=== PATIENT | female | born 1935 | race Caucasian/White ===

== ENCOUNTER 2019-05-09 20:02 | Emergency (ER) | payer MEDICARE ==
[~2019-05-09] VITALS: Ht 160 cm; Wt 88.0 kg
[2019-05-09 21:10] LABS: BASOPHILS % 0.2 % (0.0-1.0); EOSINOPHILS % 0.7 % (0.0-6.0); HEMATOCRIT 36.1 % (34.2-44.1); HEMOGLOBIN 12.4 g/dL (12.0-16.0); LYMPHOCYTES # (AUTO) 1.6 (1.0-3.2); LYMPHOCYTES % 36.5 % (18.0-39.1); MEAN CORPUSCULAR HEMOGLOBIN 29.2 pg (28-32); MEAN CORPUSCULAR HGB CONC 34.3 g/dL (31-35); MEAN CORPUSCULAR VOLUME 85.1 fL (81-99); MONOCYTES # (AUTO) 0.4 (0.2-0.8); MONOCYTES % 9.4 % (4.4-11.3); NEUTROPHILS # (AUTO) 2.4 (2.1-6.9); PLATELET COUNT 131 x10e3/uL (140-360); RED BLOOD COUNT 4.24 x10e6/uL (3.6-5.1); RED CELL DISTRIBUTION WIDTH 13.2 % (11.7-14.4)
[2019-05-09 21:20] LABS: INR 0.9; PARTIAL THROMBOPLASTIN TIME 25.9 seconds (23.8-35.5); PROTHROMBIN TIME 12.7 seconds (11.9-14.5)
[2019-05-09 21:27] LABS: ALBUMIN 3.8 g/dL (3.5-5.0); ALBUMIN/GLOBULIN RATIO 1.3 (0.8-2.0); ANION GAP 13.7 mmol/L (8-16); CALCIUM 9.1 mg/dL (8.4-10.2); CREATININE, SERUM 0.91 mg/dL (0.57-1.11); POTASSIUM 3.7 mmol/L (3.5-5.1)
[2019-05-09 21:34] LABS: CREATINE KINASE MB 4.9 ng/mL (0-5.0)
--- NOTE | 2019-05-09 22:30 | Diagnostic Imaging Report ---
EXAMINATION: Head CT HISTORY: Syncope, lightheadedness, nausea and vomiting COMPARISON: None. TECHNIQUE: Multidetector axial images were obtained without contrast from the foramen magnum to the vertex . The images were reconstructed using brain and bone algorithms. Thin section brain images were reformatted into coronal and sagittal planes. Image quality: Motion/streaking artifact limits the evaluation of the skull base and posterior cranial fossa. Dose modulation, iterative reconstruction, and/or weight based adjustment of the mA/kV was utilized to reduce the radiation dose to as low as reasonably achievable. FINDINGS: Parenchyma: 1. No abnormal densities. 2. No mass or hemorrhage. No CT evidence of acute territorial vascular insult. Extra-axial spaces:No abnormal density. No extra-axial fluid collections Brain volume: Normal for age. Ventricles: No hydrocephalus or displacement. Arteries: No density suggestive of thrombus. Dural sinuses: No abnormal density. Foramen magnum: No mass, Chiari malformation, or basilar invagination. Sella: No obvious mass. Paranasal/mastoid sinuses: Imaged portions unremarkable. Skull/Scalp: No lytic or blastic lesions. No fractures. IMPRESSION: No intracranial abnormalities. Signed by: Dr. Enma Carvajal M.D. on 05/09/2019 10:27 PM
--- NOTE | 2019-05-09 23:16 | Diagnostic Imaging Report ---
EXAMINATION: CHEST SINGLE (PORTABLE) INDICATION: Syncope COMPARISON: None FINDINGS: TUBES and LINES: None. LUNGS: Normal lung volumes. Lungs are clear. Prominent central pulmonary vasculature. PLEURA: No pleural effusion or pneumothorax. HEART AND MEDIASTINUM: The cardiomediastinal silhouette is unremarkable. There are atherosclerotic calcifications within the aorta. BONES AND SOFT TISSUES: No acute osseous lesion. Soft tissues are unremarkable. Degenerative changes in the spine and shoulders. UPPER ABDOMEN: No free air under the diaphragm. IMPRESSION: Pulmonary vascular congestion. Signed by: Wojciech Nevarez DO on 05/09/2019 11:13 PM
[2019-05-09 23:40] LABS: BACTERIA,URINE FEW /HPF; BILIRUBIN,URINE NEGATIVE (NEGATIVE); CLARITY,URINE CLEAR (CLEAR); COLOR,URINE YELLOW (YELLOW); EPITHELIAL CELLS,URINE FEW /LPF; KETONES,URINE NEGATIVE (NEGATIVE); LEUKOCYTE ESTERASE ,URINE TRACE (NEGATIVE); NITRITE,URINE NEGATIVE (NEGATIVE); PROTEIN,URINE DIPSTICK NEGATIVE (NEGATIVE); URINE UROBILINOGEN 0.2 mg/dL (0.2 - 1)
[2019-05-10] MEDS ORDERED: SODIUM CHLORIDE FLUSH 10 ML SYR INJ PRN (00:30)
[2019-05-10] MEDS ORDERED: ONDANSETRON HCL INJ 2MG/ML 2ML 2 MG/ML VIAL IV PRN (00:30)
--- OUTSIDE RECORDS SUMMARY | 2019-05-10 00:35 | XMS REPORT ---
Author Author [facility] Address Unknown Phone Unavailable Care Team Providers Care Hotel Attendant Name Role Phone Soraya CORREA Unavailable Unavailable Problems This patient has no known problems. Allergies, Adverse Reactions, Alerts This patient has no known allergies or adverse reactions. Medications This patient has no known medications. Results Test Description Test Time Test Comments Text Results Atomic Results Result Comments CHEST SINGLE (PORTABLE) 2019-05-09 23:12:00 [place] [id number] Patient Name: FAVIAN KOLB MR #: [id number] : 1935 Age/Sex: 83/F Req #: [id number] Adm Physician: Ordered by: MAKAYLA CORREA MD Report #: [id number] Location: ER Room/Bed: Procedure: [id number] DX/CHEST SINGLE (PORTABLE) Exam Date: 05/09/19 Exam Time: 2203 REPORT STATUS: Signed EXAMINATION: CHEST SINGLE (PORTABLE) INDICATION: Syncope COMPARISON: None FINDINGS: TUBES and LINES: None. LUNGS: Normal lung volumes. Lungs are clear. Prominent central pulmonary vasculature. PLEURA: No pleural effusion or pneumothorax. HEART AND MEDIASTINUM: The cardiomediastinal silhouette is unremarkable. There are atherosclerotic calcifications within the aorta. BONES AND SOFT TISSUES: No acute osseous lesion. Soft tissues are unremarkable. Degenerative changes in the spine and shoulders. UPPER ABDOMEN: No free air under the diaphragm. IMPRESSION: Pulmonary vascular congestion. Signed by: Wojciech Nevarez DO on 05/09/2019 11:13 PM Dictated By: WOJCIECH NEVAREZ DO 12 Transcribed By: LAUREN on 05/09/192312 COPY TO: MAKAYLA CORREA MD CT BRAIN WO 2019-05-09 22:18:00 [place] [id number] Patient Name: FAVIAN KOLB MR #: [id number] : 1935 Age/Sex: 83/F Req #: [id number] Adm Physician: Ordered by: MAKAYLA CORREA MD Report #: [id number] Location: ER Room/Bed: Procedure: [id number] CT/CT BRAIN WO Exam Date: 05/09/19 Exam Time: 2203 REPORT STATUS: Signed EXAMINATION: Head CT HISTORY: Syncope, lightheadedness, nausea and vomiting COMPARISON: None. TECHNIQUE: Multidetector axial images were obtained without contrast from the foramen magnum to the vertex . The images were reconstructed using brain and bone algorithms. Thin section brain images were reformatted into coronal and sagittal planes. Image quality: Motion/streaking artifact limits the evaluation of the skull base and posterior cranial fossa. Dose modulation, iterative reconstruction, and/or weight based adjustment of the mA/kV was utilized to reduce the radiation dose to as low as reasonably achievable. FINDINGS: Parenchyma: 1. No abnormal densities. 2. No mass or hemorrhage. No CT evidence of acute territorial vascular insult. Extra-axial spaces:No abnormal density. No extra-axial fluid collections Brain volume: Normal for age. Ventricles: No hydrocephalus or displacement. Arteries: No density suggestive of thrombus. Dural sinuses: No abnormal density. Foramen magnum: No mass, Chiari malformation, or basilar invagination. Sella: No obvious mass. Paranasal/mastoid sinuses: Imaged portions unremarkable. Skull/Scalp: No lytic or blastic lesions. No fractures. IMPRESSION: No intracranial abnormalities. Signed by: Dr. Geoff Carvajal M.D. on 05/09/2019 10:27 PM Dictated By: GEOFF CARVAJAL MD Elec tronically Signed By: GEOFF CARVAJAL MD on 05/09/192226 Transcribed By: LAUREN on 05/09/192226 COPY TO: MAKAYLA CORREA MD
[2019-05-10] MEDS ORDERED: HYDROCODONE/CHLORPHENIRAMINE 5 ML LIQCR PO PRN (04:00)
[2019-05-10] MEDS ORDERED: HYDROCODONE/CHLORPHENIRAMINE 5 ML LIQCR ONE (04:09)
[2019-05-10 05:05] LABS: CREATINE KINASE 159 IU/L (29-168)
[2019-05-10 06:15] LABS: BASOPHILS % 0.3 % (0.0-1.0); EOSINOPHILS % 0.6 % (0.0-6.0); HEMATOCRIT 33.4 % (34.2-44.1); HEMOGLOBIN 11.3 g/dL (12.0-16.0); LYMPHOCYTES # (AUTO) 2.1 (1.0-3.2); LYMPHOCYTES % 57.6 % (18.0-39.1); MEAN CORPUSCULAR HEMOGLOBIN 28.9 pg (28-32); MEAN CORPUSCULAR HGB CONC 33.8 g/dL (31-35); MEAN CORPUSCULAR VOLUME 85.4 fL (81-99); MONOCYTES # (AUTO) 0.4 (0.2-0.8); MONOCYTES % 10.5 % (4.4-11.3); NEUTROPHILS # (AUTO) 1.1 (2.1-6.9); PLATELET COUNT 123 x10e3/uL (140-360); RED BLOOD COUNT 3.91 x10e6/uL (3.6-5.1); RED CELL DISTRIBUTION WIDTH 13.2 % (11.7-14.4)
[2019-05-10 06:26] LABS: ALANINE AMINOTRANSFERASE 17 IU/L (0-55); ALBUMIN 3.5 g/dL (3.5-5.0); ALBUMIN/GLOBULIN RATIO 1.3 (0.8-2.0); ALKALINE PHOSPHATASE 48 IU/L (40-150); ANION GAP 15.8 mmol/L (8-16); BLOOD UREA NITROGEN 17 mg/dL (7-26); BUN/CREATININE RATIO 23 (6-25); CALCIUM 8.8 mg/dL (8.4-10.2); CARBON DIOXIDE 25 mmol/L (22-29); CHLORIDE 104 mmol/L (98-107); CREATININE, SERUM 0.75 mg/dL (0.57-1.11); EST GLOMERULAR FILTRATION RATE > 60 ML/MIN (60-); GLUCOSE 89 mg/dL (74-118); POTASSIUM 3.8 mmol/L (3.5-5.1); SODIUM 141 mmol/L (136-145)
--- NOTE | 2019-05-10 18:59 | History and Physical ---
PRIMARY CARE PHYSICIAN: Dr. Sharan Hoffman. CHIEF COMPLAINT: Near syncope. HISTORY OF PRESENT ILLNESS: This is an 83-year-old woman who has been battling sinus drainage, cough, and diarrhea. Diarrhea had finally stopped yesterday afternoon. Last night, she went out to dinner with her and while sitting down eating, the patient felt lightheaded and had to put her head down. Subsequently, the patient had one episode of vomiting and she felt back to baseline. The patient came to the ER for further evaluation. Currently, the patient is still in her usual state of health. No chest pain. No shortness of breath. Still has some nagging cough. No fever. The patient does take bisoprolol for her blood pressure. PAST MEDICAL HISTORY: 1. Hypertension. 2. Hyperlipidemia. 3. GERD. MEDICATIONS: Please see medication reconciliation form. PAST SURGICAL HISTORY: Knee and hip. ALLERGIES: TO AMLODIPINE. FAMILY HISTORY: Heart disease. SOCIAL HISTORY: Does not smoke. REVIEW OF SYSTEMS: A 10-point review of systems obtained. Nothing else is significant other than what is stated in the HPI. PHYSICAL EXAMINATION: VITAL SIGNS: Temperature 98.2; pulse as low as 48, currently in the 50s; blood pressure 117/63; respiratory rate 18. GENERAL: No acute distress. SKIN: No rash. HEENT: Anicteric. Oropharynx is clear. HEART: [place]. Normal S1, S2. LUNGS: Clear. ABDOMEN: Soft, nondistended, and nontender. Normoactive bowel sounds. : Deferred. NEUROLOGICAL: Alert and oriented x3. Cranial nerves 2-12 intact. PSYCHIATRIC: No hallucinations. LABORATORY DATA: Creatinine 0.76. Hemoglobin 11.3. PT and PTT are normal. Chest x-ray unremarkable. Head CT was negative. Echo was unremarkable. Carotid ultrasound, preliminary, possible left bifurcation stenosis. ASSESSMENT AND PLAN: Near syncope, likely due to a combination of iatrogenic bradycardia and diarrhea. At this time, diarrhea has resolved. The patient is back to her usual self. She is stable for going home. I have asked her to hold her disapproval and follow up with her primary care doctor in a week. Potentially, she may need different blood pressure medicines to offset her bisoprolol. MD MELISA Serrano/SJ /[id number] cc: [facility]
--- NOTE | 2019-05-11 01:46 | Discharge Summary ---
FINAL DIAGNOSIS: Near syncope due to iatrogenic bradycardia and dehydration. HOSPITAL COURSE: The patient was monitored overnight. She was told to hold her bisoprolol. She is back to her baseline. The patient will follow up with her primary care doctor. Please see H and P for details. CONDITION ON DISCHARGE: Stable. DISCHARGE MEDICATIONS: Please see medication reconciliation form. YiMD MELISA Nolasco/SJ /[id number]
== END 2019-05-10 12:38 | disposition home or self-care (01) ==
LOC: ER 20:02 → UNDOADMOB 05-10 00:29 → ERHOLD 05-10 00:29
DX: R55 Syncope and collapse (principal); I10 Essential (primary) hypertension; E78.5 Hyperlipidemia, unspecified; K21.9 Gastro-esophageal reflux disease without esophagitis; Z96.653 Presence of artificial knee joint, bilateral; Z96.641 Presence of right artificial hip joint
CPT/HCPCS: 36415; 70450; 71045; 80053; 81001; 82550; 82553; 83880; 84484; 85025; 85610; 85730; 93005; 93306; 93880; 99284

== ENCOUNTER 2021-01-27 10:05 | Emergency (ER) | payer MEDICARE ==
[~2021-01-27] VITALS: Ht 162.6 cm; Wt 86.2 kg
[2021-01-27 12:23] VITALS: BP 186/69
== END 2021-01-27 12:32 | disposition home or self-care (01) ==
LOC: FSED 10:30
DX: R07.89 Other chest pain (principal); I10 Essential (primary) hypertension; E78.5 Hyperlipidemia, unspecified; R91.8 Other nonspecific abnormal finding of lung field; R94.31 Abnormal electrocardiogram [ECG] [EKG]; K21.9 Gastro-esophageal reflux disease without esophagitis; Z96.653 Presence of artificial knee joint, bilateral; Z96.641 Presence of right artificial hip joint
CPT/HCPCS: 71046; 80053; 82553; 84484; 85025; 99283

== ENCOUNTER 2021-08-02 13:23 | Emergency (ER) | payer MEDICARE, OTHER ==
[~2021-08-02] VITALS: Ht 160 cm; Wt 79.8 kg
[2021-08-02] MEDS ORDERED: TETANUS/DIPHTHERIA TOX ADULT 0.5 ML SYR ONE (14:05)
[2021-08-02] MEDS ORDERED: TETANUS/DIPHTHERIA TOX ADULT 0.5 ML SYR IM ONE (14:15)
[2021-08-02] MEDS ORDERED: CEFTRIAXONE 1 GM VIAL IM ONE (14:30)
[2021-08-02] MEDS ORDERED: ACETAMINOPHEN 325 MG TAB PO ONE (14:30)
[2021-08-02] MEDS ORDERED: CEFTRIAXONE 1 GM VIAL ONE (14:34)
[2021-08-02] MEDS ORDERED: ACETAMINOPHEN 325 MG TAB ONE (14:34)
[2021-08-02] MEDS ORDERED: AMOX TR-K CLV1 EAC2 PO (15:23)
== END 2021-08-02 15:48 | disposition home or self-care (01) ==
LOC: FSED 13:35
DX: S51.851A Open bite of right forearm, initial encounter (principal); W54.0XXA Bitten by dog, initial encounter; Y92.007 Garden or yard of unspecified non-institutional (private) residence as the place of occurrence of the external cause; I10 Essential (primary) hypertension; E78.5 Hyperlipidemia, unspecified; K21.9 Gastro-esophageal reflux disease without esophagitis; Z96.641 Presence of right artificial hip joint; Z96.653 Presence of artificial knee joint, bilateral
CPT/HCPCS: 12001; 73090; 90471; 90714; 99284; J0696

== ENCOUNTER 2023-12-19 09:09 | Emergency (ER) | payer MEDICARE ==
[~2023-12-19] VITALS: Ht 160 cm; Wt 77.6 kg
[~2023-12-19 09:09] MED LIST: AMIODARONE HCL200 MG PO; AMOX TR-K CLV1 EAC2 PO; ATORVASTATIN CA80 MG PO; BACLOFEN10 MG PO; CEFDINIR300 MG PO; ESIDRIX25 MG PO; FERROUS SULFAT325 MG PO; FLUTICASONE PRO16 GM NS; GABAPENTIN100 MG PO; HYDRALAZINE HC100 MG PO; LEVOTHYROXINE25 MCG PO; LISINOPRIL40 MG PO; OMEPRAZOLE20 MG PO
[2023-12-19 09:14] VITALS: PULSE 76; RESP 15; TEMP 98.8; O2SAT 95
== END 2023-12-19 12:02 | disposition home or self-care (01) ==
LOC: ER 09:18
DX: S00.03XA Contusion of scalp, initial encounter (principal); W01.198A Fall on same level from slipping, tripping and stumbling with subsequent striking against other object, initial encounter; Y93.01 Activity, walking, marching and hiking; Y92.89 Other specified places as the place of occurrence of the external cause; I10 Essential (primary) hypertension; E78.5 Hyperlipidemia, unspecified; K21.9 Gastro-esophageal reflux disease without esophagitis; Z96.641 Presence of right artificial hip joint; Z96.653 Presence of artificial knee joint, bilateral
CPT/HCPCS: 70450; 72125; 99284

== ENCOUNTER 2024-02-26 11:00 | Inpatient (IN) | payer MEDICARE ==
[~2024-02-26] VITALS: Ht 160 cm; Wt 70.8 kg
[2024-02-26] MEDS: CLONIDINE HCL 0.1 MG TAB PO ONE (12:17)
[2024-02-26] MEDS: ASPIRIN 81 MG CHEW TAB PO ONE (13:35)
[2024-02-26 13:45] VITALS: PULSE 62; RESP 18; TEMP 98.3
[2024-02-26 15:04] VITALS: BP 157/72; O2SAT 96
[2024-02-26] MEDS ORDERED: IPRATROPIUM BRO30 ML INH (15:13)
[2024-02-26] MEDS ORDERED: FAMOTIDINE20 MG PO (15:14)
[2024-02-26 15:19] VITALS: BP 157/72; O2SAT 96
[2024-02-26] MEDS ORDERED: ASPIRIN81 MG PO (15:30)
[2024-02-26] MEDS: FUROSEMIDE INJ 10 MG/ML 4 ML VIAL IV SCH (16:25)
[2024-02-26] MEDS: CARVEDILOL 3.125 MG TAB PO SCH (16:25)
[2024-02-26] MEDS: LOSARTAN POTASSIUM 25 MG TAB PO SCH (16:26)
[2024-02-26 20:00] VITALS: BP 119/59; PULSE 73; RESP 20; TEMP 97.7; O2SAT 95
[2024-02-26 21:00] VITALS: BP 119/59; PULSE 73; RESP 20; TEMP 97.7; O2SAT 95
[2024-02-26] MEDS ORDERED: MELATONIN 3 MG TAB PO PRN (21:45)
[2024-02-26] MEDS ORDERED: MAGNESIUM/ALUMINUM/SIMETHICONE 30 ML UDC PO PRN (21:45)
[2024-02-26] MEDS ORDERED: ONDANSETRON HCL INJ 2MG/ML 2ML 2 MG/ML VIAL IV PRN (21:45)
[2024-02-26] MEDS: IPRATROPIUM BROMIDE 0.03% NASAL SPRAY 30ML SCH (21:45)
[2024-02-26] MEDS: GUAIFENESIN/DEXTROMETHORPHAN LIQD 5 ML UDC PO PRN (22:14)
[2024-02-27] VITALS (14 sets, daily range): BP systolic 140–188; BP diastolic 55–76; PULSE 63–67; RESP 16–20; TEMP 97.7–98.5; O2SAT 93–100
[2024-02-27] MEDS: LEVOTHYROXINE SODIUM 25 MCG TABLET PO SCH (06:00)
[2024-02-27 06:26] LABS: BASOPHILS % 0.6 % (0.0-1.0); EOSINOPHILS # (AUTO) 0.2 (0.0-0.4); EOSINOPHILS % 3.6 % (0.0-6.0); HEMATOCRIT 28.5 % (34.2-44.1); HEMOGLOBIN 9.4 g/dL (12.0-16.0); LYMPHOCYTES # (AUTO) 1.1 (1.0-3.2); LYMPHOCYTES % 21.7 % (18.0-39.1); MEAN CORPUSCULAR HEMOGLOBIN 28.2 pg (28-32); MEAN CORPUSCULAR VOLUME 85.6 fL (81-99); MONOCYTES # (AUTO) 0.4 (0.2-0.8); MONOCYTES % 8.1 % (4.4-11.3); NEUTROPHILS # (AUTO) 3.4 (2.1-6.9); NEUTROPHILS % 65.6 % (38.7-80.0); PLATELET COUNT 151 x10e3/uL (140-360); RED BLOOD COUNT 3.33 x10e6/uL (3.6-5.1); RED CELL DISTRIBUTION WIDTH 15.2 % (11.7-14.4); WHITE BLOOD COUNT 5.21 x10e3/uL (4.8-10.8)
[2024-02-27 06:51] LABS: MAGNESIUM 1.7 MG/DL (1.3-2.1)
[2024-02-27 07:31] LABS: CALCIUM 8.6 mg/dL (8.4-10.2); CREATININE, SERUM 0.75 mg/dL (0.57-1.11)
[2024-02-27 07:37] LABS: TROPONIN I 0.017 ng/mL (0-0.300)
[2024-02-27 07:45] LABS: THYROID STIMULATING HORMONE 3.214 uIU/mL (0.350-4.940)
[2024-02-27 08:04] LABS: ANION GAP 15.1 mmol/L (8-16); POTASSIUM 3.1 mmol/L (3.5-5.1)
[2024-02-27 08:11] LABS: INR 0.92; PROTHROMBIN TIME 12.9 seconds (11.9-14.5)
[2024-02-27] MEDS: MULTIVITAMINS/MINERALS TAB PO SCH (08:11)
[2024-02-27] MEDS: PANTOPRAZOLE SODIUM 20 MG TABLET.DR PO SCH (08:11)
[2024-02-27] MEDS: ASPIRIN 81 MG CHEW TAB PO SCH (08:11)
[2024-02-27] MEDS: DOCUSATE SODIUM 100 MG CAP PO SCH (08:11)
[2024-02-27] MEDS: AMIODARONE HCL 200 MG TAB PO SCH (08:12)
[2024-02-27] MEDS: HYDRALAZINE HCL 20 MG/ML VIAL IV PRN (12:38)
[2024-02-27] MEDS: ACETAMINOPHEN 325 MG TAB PO PRN (16:09)
[2024-02-27 16:44] LABS: BODY FLUID APPEARANCE SL.CLOUDY; BODY FLUID COLOR YELLOW; BODY FLUID TYPE PLEURAL
[2024-02-27 16:45] LABS: RBC,BODY FLUID 4000 cells/uL; WBC,BODY FLUID 2987 cells/uL
[2024-02-27 16:56] LABS: TROPONIN I 0.016 ng/mL (0-0.300)
[2024-02-27 18:37] LABS: EOSINOPHILS,BODY FLUID 10 %; LYMPHOCYTES,BODY FLUID 24 %; MONO/MACROPHG,BODY FLUID 17 %; NEUTROPHILS,BODY FLUID 44 %; OTHER CELLS,BODY FLUID 5 %; TOTAL CELLS COUNTED (DIFF) 100
[2024-02-27] MEDS: GABAPENTIN 100 MG CAP PO SCH (21:14)
[2024-02-27] MEDS: ATORVASTATIN 40 MG TAB PO SCH (21:14)
[2024-02-28] VITALS (12 sets, daily range): BP systolic 123–172; BP diastolic 54–70; PULSE 59–71; RESP 16–18; TEMP 97.7–99.2; O2SAT 93–99
[2024-02-28] MEDS: POTASSIUM CHLORIDE 20 MEQ TAB CR PO STA (06:42)
[2024-02-28 07:13] LABS: ANION GAP 13.8 mmol/L (8-16); CALCIUM 8.7 mg/dL (8.4-10.2); CREATININE, SERUM 0.69 mg/dL (0.57-1.11); MAGNESIUM 1.6 MG/DL (1.3-2.1)
[2024-02-28 07:16] LABS: POTASSIUM 2.8 mmol/L (3.5-5.1)
[2024-02-28 07:35] LABS: FERRITIN 586.98 ng/mL (4.63-204.00)
[2024-02-28] MEDS: POTASSIUM CHLORIDE 20 MEQ TAB CR PO ONE ×2 (07:37→11:58)
[2024-02-28] MEDS: HYDRALAZINE HCL 100 MG TABLET PO SCH (08:40)
[2024-02-28] MEDS: POLYETHYLENE GLYCOL 3350 17 GM PACK PO PRN (21:19)
[2024-02-29] VITALS (7 sets, daily range): BP systolic 118–139; BP diastolic 53–67; PULSE 65–74; RESP 16–24; TEMP 98–99; O2SAT 92–97
[2024-02-29 06:02] LABS: TOTAL PROTEIN,BODY FLUID 4.1 g/dL
[2024-02-29 06:27] LABS: ANION GAP 13.8 mmol/L (8-16); CALCIUM 8.5 mg/dL (8.4-10.2); CREATININE, SERUM 0.76 mg/dL (0.57-1.11); MAGNESIUM 1.5 MG/DL (1.3-2.1); POTASSIUM 3.8 mmol/L (3.5-5.1)
[2024-02-29] MEDS: FERROUS SULFATE 325 MG TAB PO SCH (09:13)
[2024-02-29] MEDS: POTASSIUM CHLORIDE 20 MEQ TAB CR PO SCH (09:14)
[2024-02-29] MEDS ORDERED: LASIX40 MG PO (17:13)
[2024-02-29] MEDS ORDERED: HYDRALAZINE HC100 MG PO (17:13)
[2024-02-29] MEDS ORDERED: Ferrous Sulfate PO (17:13)
[2024-02-29] MEDS: SODIUM CHLORIDE 1 GM TAB PO ONE (17:22)
[2024-02-29] MEDS ORDERED: ONDANSETRON HCL 4 MG ORAL DISINTEGRATING TAB PO PRN (18:15)
[2024-03-01] MEDS ORDERED: FUROSEMIDE 40 MG TAB PO SCH (09:00)
== END 2024-02-29 18:30 | disposition home or self-care (01) | DRG 291 ==
LOC: FSED 11:12 → ERHOLD 12:49 → MED/SURG3 14:45
PROVIDERS: ADMIT Internal Medicine; ATTEND Internal Medicine
PROC: 0W9B3ZZ Drainage of Left Pleural Cavity, Percutaneous Approach (ICD-10-PCS; principal; 2024-02-27)
DX: I11.0 Hypertensive heart disease with heart failure (principal); I50.33 Acute on chronic diastolic (congestive) heart failure; J90 Pleural effusion, not elsewhere classified; J98.11 Atelectasis; D63.8 Anemia in other chronic diseases classified elsewhere; I27.29 Other secondary pulmonary hypertension; I16.0 Hypertensive urgency; I48.91 Unspecified atrial fibrillation; E03.9 Hypothyroidism, unspecified; E78.5 Hyperlipidemia, unspecified; K21.9 Gastro-esophageal reflux disease without esophagitis; M19.90 Unspecified osteoarthritis, unspecified site; J30.9 Allergic rhinitis, unspecified; Z79.82 Long term (current) use of aspirin; Z79.51 Long term (current) use of inhaled steroids; Z79.890 Hormone replacement therapy; Z11.52 Encounter for screening for COVID-19; Z88.8 Allergy status to other drugs, medicaments and biological substances
CPT/HCPCS: 0223U; 32555; 36415; 71045; 71250; 80048; 80053; 82550; 82728; 82945; 83518; 83540; 83615; 83735; 83880; 84132; 84157; 84443; 84466; 84484; 85025; 85610; 87070; 87205; 87400; 87420; 89051; 93306; 94760; 94799; 99284; J0360; J1940

== ENCOUNTER 2024-12-01 21:16 | Emergency (ER) | payer MEDICARE ==
[~2024-12-01] VITALS: Ht 157.5 cm; Wt 73.9 kg
[~2024-12-01 21:16] MED LIST changes: +ASPIRIN81 MG PO; +CLEOCIN HCL300 MG PO; +FAMOTIDINE20 MG PO; +Ferrous Sulfate PO; +IPRATROPIUM BRO30 ML INH; +LASIX40 MG PO; +ULTRAM 50MG50 MG PO
[2024-12-01 21:46] VITALS: PULSE 65; RESP 18; TEMP 97.6
[2024-12-01] MEDS ORDERED: KETOROLAC TROMETHAMINE 30 MG/ML VIAL IM STA (22:55)
[2024-12-01] MEDS: KETOROLAC TROMETHAMINE 30 MG/ML VIAL IV STA (23:33)
[2024-12-02 00:10] VITALS: BP 129/65; PULSE 64; RESP 18; TEMP 97.8; O2SAT 96
== END 2024-12-02 00:10 | disposition home or self-care (01) ==
LOC: FSED 21:49
DX: M79.632 Pain in left forearm (principal); M79.631 Pain in right forearm; M77.8 Other enthesopathies, not elsewhere classified; X50.1XXA Overexertion from prolonged static or awkward postures, initial encounter; Y92.89 Other specified places as the place of occurrence of the external cause; I10 Essential (primary) hypertension; I50.9 Heart failure, unspecified; E78.5 Hyperlipidemia, unspecified; K21.9 Gastro-esophageal reflux disease without esophagitis; E03.9 Hypothyroidism, unspecified; Z96.653 Presence of artificial knee joint, bilateral; Z96.641 Presence of right artificial hip joint
CPT/HCPCS: 80048; 85025; 96372; 99282; J1885